=== PATIENT | male | born 1945 | race Caucasian/White ===

== ENCOUNTER 2020-05-29 16:52 | Emergency (ER) | payer MEDICARE ==
[~2020-05-29] VITALS: Ht 167.6 cm; Wt 69.0 kg
[2020-05-29] MEDS ORDERED: LIDOCAINE HCL 1% 20ML VIAL (Pyxis) INJ INFIL ONE (21:15)
[2020-05-29] MEDS ORDERED: TETANUS, DIPHTHERIA, PERTUSSIS VAC/PF 0.5ML (>7YR OLD) IM ONE (21:45)
[2020-05-29] MEDS ORDERED: CEPHALEXIN 250MG CAPSULE PO ONE (21:45)
[2020-05-29 22:45] VITALS: BP 151/71
== END 2020-05-29 23:06 | disposition home or self-care (01) ==
LOC: ER 16:52
DX: R68.89 Other general symptoms and signs (principal); F41.9 Anxiety disorder, unspecified; J45.909 Unspecified asthma, uncomplicated; I10 Essential (primary) hypertension; F20.9 Schizophrenia, unspecified
CPT/HCPCS: 71045; 93005; 99285; J3490